=== PATIENT | female | born 1975 | race Two or more races ===

== ENCOUNTER 2017-09-25 09:13 | Outpatient (CLI) | payer OTHER ==
[~2017-09-25 09:13] MED LIST: HUMALOG100 U/M1 SQ; HUMULIN N100 U/ML SQ; ZESTRIL5 MG PO
== END 2017-09-25 09:16 | disposition home or self-care (01) ==
LOC: MAMO-SONO 09:13
DX: Z12.31 Encounter for screening mammogram for malignant neoplasm of breast (principal)

== ENCOUNTER 2019-09-04 13:24 | Emergency (ER) | payer OTHER ==
[~2019-09-04] VITALS: Ht 162.6 cm; Wt 83.9 kg
[2019-09-04] MEDS ORDERED: SYNTHROID150 MCG PO (13:35)
[2019-09-04] MEDS ORDERED: COZAAR100 MG PO (13:35)
[2019-09-04] MEDS ORDERED: METFORMIN HCL500 MG PO (13:36)
== END 2019-09-04 18:33 | disposition home or self-care (01) ==
LOC: ER 13:24
DX: K29.60 Other gastritis without bleeding (principal); E86.0 Dehydration